=== PATIENT | female | born 1965 ===

== ENCOUNTER 2021-12-30 14:42 | Emergency (ER) | payer OTHER, MEDICAID, SELFPAY ==
[2021-12-30 14:48] VITALS: BP 143/105; PULSE 76; RESP 14; TEMP 36.3; O2SAT 97
--- NOTE | 2021-12-30 14:51 | ED_ITS ---
Documented by User: rTu Perez MD 01/05/22 11:07 HPI - Female Genitourinary General: Chief complaint: Vaginal Bleeding Stated complaint: hasn't had period since ', heavy bleeding Time Seen by Provider: 12/30/21 14:51 History of Present Illness: Ms Luo is a 56-year-old lady presenting to the emergency department due to abnormal vaginal bleeding. She reports last normal menstrual period was in 2004 and has not had bleeding since. 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 She has noticed a protruding mass over the past few months and for the past few days has had vaginal bleeding that is required menstrual pads. Does note generalized malaise and abdominal discomfort. Overall course of symptoms has worsened. Intensity is moderate. No other specific changes in health, exacerbating, or alleviating factors identified. Onset (ago): week(s) Location of symptoms: vaginal Severity: moderate Vaginal discharge: none Vaginal bleeding: moderate Associated symptoms: Reports weakness Review of Systems General: Reports: 10 or more systems reviewed and unremarkable except in HPI and below PFSH ED PFSH: Family History (Updated 01/05/22 @ 07:54 by Ernestina Clark RN) Daughter Diabetes Bipolar 1 disorder Hypertension Stroke Father Diabetes Heart disease Sister No problems noted. Son Psychiatric illness ADD (attention deficit disorder) ADHD (attention deficit hyperactivity disorder) Von Willebrand disease Brother Diabetes Mother Thyroid condition Breast cancer 70's Other Bleeding disorder Denies family history of Colon cancer Ovarian cancer Clotting disorder Hyperlipidemia Anesthesia complication Uterine cancer Social History Smoking and tobacco status: former smoker Physical Exam Const: COMMON NORMALS: alert GENERAL APPEARANCE: cooperative and well developed HENMT: COMMON NORMALS: normocephalic and atraumatic HEAD & SCALP: normocephalic and atraumatic Eye: COMMON NORMALS: conjunctivae normal CONJUNCTIVA: Yes conjunctivae normal SCLERA: sclerae normal Neck/C-Spine: COMMON NORMALS: supple GENERAL: Yes trachea midline Resp: COMMON NORMALS: normal respiratory effort EFFORT & INSPECTION: Yes able to speak in complete sentences Cardio: COMMON NORMALS: regular rate and regular rhythm RATE: regular rate RHYTHM: regular rhythm GI: COMMON NORMALS: Soft to palpation PALPATION: Yes Soft to palpation, Yes Tenderness to palpation present (GI), No Guarding due to palpation present (GI) and No Rigid due to palpation : OTHER: Pelvic exam performed with doughnut fryer present. Dark red blood with clots noted on the external genitalia from the vaginal introitus, no external lesions appreciated. No obvious abnormality identified as source of bleeding in the vaginal canal. Cervix only partially visualized and appears asymmetric. There is bogginess on bimanual exam with more tenderness at midline and left adnexal region compared to contralateral side though with general tenderness. Extremity: GENERAL: Yes normal exam except as noted and No edema Neuro: COMMON NORMALS: moves all extremities SENSORIUM/ORIENTATION: Yes alert and No Orientation impaired Psych: COMMON NORMALS: mental status grossly normal and Normal thought process present THOUGHT PROCESS: Normal thought process present Course Vital Signs: Vital signs: Vital Signs Temperature 97.4 F L 12/30/21 14:48 Pulse Rate 62 12/30/21 19:37 Respiratory Rate 16 12/30/21 19:37 Blood Pressure 143/105 12/30/21 14:48 Pulse Oximetry 100 12/30/21 19:37 Oxygen Delivery Me thod 12/30/21 17:40 MDM - Female Medical Decision Making 56-year-old lady with abnormal gynecologic history lost to follow-up presenting to the emergency department due to postmenopausal bleeding. Patient is vitally satisfactory and nontoxic in appearance though does have abdominal tenderness to palpation. Exam as above. Hematologic panel with normal hemoglobin, no leukocytosis, metabolic panel w ithout significant abnormality. 3+ blood on urinalysis may be secondary to contamination. Patient care handed off to Dr. Ayala pending completion of ultrasound with likely plan for outpatient follow-up. Most likely etiology of patient's symptoms is dysfunctional uterine bleeding with high clinical suspicion for malignancy. Patient presents here with vaginal bleeding likely from her ovarian mass that is concerning for neoplasm. Her hemoglobin here is normal I did speak to Dr. Reilly she is to follow-up with him in 3 to 5 days and return if worsening she understands and agrees to plan. Medical Records I reviewed the patient's medical records. Lab Data I reviewed the patient's lab results. : 12/30/21 15:15 12/30/21 15:15 Radiology Impressions Pelvic/Transvag US 12/30/21 16:10 IMPRESSION: 1. There is a right adnexal cystic mass with a large solid mural nodule demonstrated. This complex cystic mass measures 7.0 x 7.1 x 13.9 cm. Color Doppler demonstrates the presence of blood flow within the mural nodule. This is concerning for an ovarian neoplastic lesion. Consider surgical evaluation. 2. The endometrium is abnormally thickened measuring 13 mm in AP dimension. Consider endometrial hyperplasia. Endometrial neoplastic disease is not excluded. Laboratory Results WBC 4.3 10^3/uL (4.0-10.0) 12/30/21 15:15 RBC 5.32 10^6/uL (4.1-5.3) H 12/30/21 15:15 Hgb 15.0 g/dL (11.5-15.3) 12/30/21 15:15 Hct 47.2 % (37.0-47.0) H 12/30/21 15:15 MCV 88.7 fl (81-99) 12/30/21 15:15 MCH 28.2 pg (28.0-34.0) 12/30/21 15:15 MCHC 31.8 g/dL (30.0-36.0) 12/30/21 15:15 RDW 13.4 % (12.1-15.1) 12/30/21 15:15 Plt Count 247 10^3/cmm (130-400) 12/30/21 15:15 MPV 10.4 fL (7.4-10.4) 12/30/21 15:15 Neut % (Auto) 57.0 % 12/30/21 15:15 Lymph % (Auto) 31.1 % 12/30/21 15:15 [place] % (Auto) 6.1 % 12/30/21 15:15 Eos % (Auto) 4.4 % 12/30/21 15:15 Baso % (Auto) 1.2 % 12/30/21 15:15 Neut # (Auto) 2.44 10^3/uL (1.8-7.7) 12/30/21 15:15 Lymph # (Auto) 1.3 10^3/uL (0.8-4.8) 12/30/21 15:15 [place] # (Auto) 0.3 10^3/uL (0.2-0.9) 12/30/21 15:15 Eos # (Auto) 0.2 10^3/uL (0.0-0.8) 12/30/21 15:15 Baso # (Auto) 0.1 10^3/uL (0.0-0.1) 12/30/21 15:15 Nucleated RBC % (auto) 0 % 12/30/21 15:15 Nucleated RBCs # 0.0 /100WBC 12/30/21 15:15 Sodium 141 mmol/L (136-145) 12/30/21 15:15 Potassium 4.3 mmol/L (3.5-5.1) 12/30/21 15:15 Chloride 104 mmol/L (98-107) 12/30/21 15:15 Carbon Dioxide 27 mmol/L (22-29) 12/30/21 15:15 Anion Gap 14.3 (5-19) 12/30/21 15:15 BUN 17 mg/dL (6-20) 12/30/21 15:15 Creatinine 0.5 mg/dL (0.5-0.9) 12/30/21 15:15 GFR Calculation 128.1 mL/min (90-130) 12/30/21 15:15 Glucose 91 mg/dL (65-115) 12/30/21 15:15 Calculated Osmolality 293 mOsm/kg (285-295) 12/30/21 15:15 Calcium 9.0 mg/dL (8.5-10.5) 12/30/21 15:15 Total Bilirubin 0.4 mg/dL (0.15-1.2) 12/30/21 15:15 AST 12 U/L (0-32) 12/30/21 15:15 ALT 15 U/L (0-33) 12/30/21 15:15 Alkaline Phosphatase 119 U/L (35-105) H 12/30/21 15:15 Total Protein 6.5 g/dL (6.6-8.7) L 12/30/21 15:15 Albumin 4.2 g/dL (3.5-5.2) 12/30/21 15:15 Globulin 2.3 g/dL (1.3-4.6) 12/30/21 15:15 Lipase 15 U/L (13-60) 12/30/21 15:15 CA 125 Antigen 19.9 U/mL (0-35) 12/30/21 15:15 Urine Color Yellow (Yellow) 12/30/21 18:20 Urine Appearance Clear (CLEAR) 12/30/21 18:20 Urine pH 8 (5-7) H 12/30/21 18:20 Ur Specific [place] 1.010 (1.005-1.030) 12/30/21 18:20 Urine Protein Neg (Negative) 12/30/21 18:20 Urine Glucose (UA) Norm (Normal) 12/30/21 18:20 Urine Ketones Negative (Negative) 12/30/21 18:20 Urine Blood 3+ (Negative) H 12/30/21 18:20 Urine Nitrate Negative (Negative) 12/30/21 18:20 Urine Bilirubin Neg (Negative) 12/30/21 18:20 Prot Sulfosalicylic Acd Negative (Negative) 12/30/21 18:20 Urine Urobilinogen Norm mg/dL (Negative) 12/30/21 18:20 Ur Leukocyte Esterase Negative (Negative) 12/30/21 18:20 Urine RBC Too numerous to cnt /hpf (0-2) H 12/30/21 18:20 Urine WBC 10-15 /hpf (0-5) H 12/30/21 18:20 Ur Squamous Epith Cells 10-15 /hpf (0-5) H 12/30/21 18:20 Amorphous Sediment Not Reportable 12/30/21 18:20 Urine Bacteria 2+ /hpf (NONE) H 12/30/21 18:20 Urine Mucus 1+ /hpf 12/30/21 18:20 Discharge Plan Discharge Patient Disposition: Home Clinical Impression: Dysfunctional uterine bleeding, Mass of right ovary Condition: Stable Prescriptions: New hydrocodone-acetaminophen 5-325 mg tablet 1 tab PO Q6H PRN (Reason: pain) Qty: 14 0RF ondansetron 4 mg tablet,disintegrating 4 mg PO Q6H PRN (Reason: nausea and vomiting) Qty: 14 0RF No Action acetaminophen [Tylenol Extra Strength] 500 mg tablet 500 mg PO Q6H PRN nitroglycerin 0.4 mg tablet, sublingual 0.4 mg sublingual Q5M PRN Rx Instructions: do not exceed 3 doses per episode Discharge Orders: Discharge ED (Routine); Ordered 12/30/21 Ordered By: Melissa Ayala Referrals: Xavi Reilly MD [Physician] - 1-3 days Discharge Diet: Advance as tolerated Discharge Activity: Resume usual activity Patient Instructions: Opioid Safety Stand Alone Forms: Work/School Release Coding Level of Care Code ED [employer] for [employer] Fwd Exam Comprehensive Documented by User: Melissa Ayala MD 12/30/21 19:35 HPI - Female Genitourinary General: Chief complaint: Vaginal Bleeding Stated complaint: hasn't had period since ', heavy bleeding Time Seen by Provider: 12/30/21 14:51 PFSH ED PFSH: Family History (Updated 01/05/22 @ 07:54 by Ernestina Clark RN) Daughter Diabetes Bipolar 1 disorder Hypertension Stroke Father Diabetes Heart disease Sister No problems noted. Son Psychiatric illness ADD (attention deficit disorder) ADHD (attention deficit hyperactivity disorder) Von Willebrand disease Brother Diabetes Mother Thyroid condition Breast cancer 70's Other Bleeding disorder Denies family history of Colon cancer Ovarian cancer Clotting disorder Hyperlipidemia Anesthesia complication Uterine cancer Social History Smoking and tobacco status: former smoker Course Vital Signs: Vital signs: Vital Signs Temperature 97.4 F L 12/30/21 14:48 Pulse Rate 62 12/30/21 19:37 Respiratory Rate 16 12/30/21 19:37 Blood Pressure 143/105 12/30/21 14:48 Pulse Oximetry 100 12/30/21 19:37 Oxygen Delivery Me thod 12/30/21 17:40 MDM - Female Medical Decision Making Patient presents here with vaginal bleeding likely from her ovarian mass that is concerning for neoplasm. Her hemoglobin here is normal I did speak to Dr. Reilly she is to follow-up with him in 3 to 5 days and return if worsening she understands and agrees to plan. Lab Data : 12/30/21 15:15 12/30/21 15:15 Radiology Impressions Pelvic/Transvag US 12/30/21 16:10 IMPRESSION: 1. There is a right adnexal cystic mass with a large solid mural nodule demonstrated. This complex cystic mass measures 7.0 x 7.1 x 13.9 cm. Color Doppler demonstrates the presence of blood flow within the mural nodule. This is concerning for an ovarian neoplastic lesion. Consider surgical evaluation. 2. The endometrium is abnormally thickened measuring 13 mm in AP dimension. Consider endometrial hyperplasia. Endometrial neoplastic disease is not excluded. Laboratory Results WBC 4.3 10^3/uL (4.0-10.0) 12/30/21 15:15 RBC 5.32 10^6/uL (4.1-5.3) H 12/30/21 15:15 Hgb 15.0 g/dL (11.5-15.3) 12/30/21 15:15 Hct 47.2 % (37.0-47.0) H 12/30/21 15:15 MCV 88.7 fl (81-99) 12/30/21 15:15 MCH 28.2 pg (28.0-34.0) 12/30/21 15:15 MCHC 31.8 g/dL (30.0-36.0) 12/30/21 15:15 RDW 13.4 % (12.1-15.1) 12/30/21 15:15 Plt Count 247 10^3/cmm (130-400) 12/30/21 15:15 MPV 10.4 fL (7.4-10.4) 12/30/21 15:15 Neut % (Auto) 57.0 % 12/30/21 15:15 Lymph % (Auto) 31.1 % 12/30/21 15:15 [place] % (Auto) 6.1 % 12/30/21 15:15 Eos % (Auto) 4.4 % 12/30/21 15:15 Baso % (Auto) 1.2 % 12/30/21 15:15 Neut # (Auto) 2.44 10^3/uL (1.8-7.7) 12/30/21 15:15 Lymph # (Auto) 1.3 10^3/uL (0.8-4.8) 12/30/21 15:15 [place] # (Auto) 0.3 10^3/uL (0.2-0.9) 12/30/21 15:15 Eos # (Auto) 0.2 10^3/uL (0.0-0.8) 12/30/21 15:15 Baso # (Auto) 0.1 10^3/uL (0.0-0.1) 12/30/21 15:15 Nucleated RBC % (auto) 0 % 12/30/21 15:15 Nucleated RBCs # 0.0 /100WBC 12/30/21 15:15 Sodium 141 mmol/L (136-145) 12/30/21 15:15 Potassium 4.3 mmol/L (3.5-5.1) 12/30/21 15:15 Chloride 104 mmol/L (98-107) 12/30/21 15:15 Carbon Dioxide 27 mmol/L (22-29) 12/30/21 15:15 Anion Gap 14.3 (5-19) 12/30/21 15:15 BUN 17 mg/dL (6-20) 12/30/21 15:15 Creatinine 0.5 mg/dL (0.5-0.9) 12/30/21 15:15 GFR Calculation 128.1 mL/min (90-130) 12/30/21 15:15 Glucose 91 mg/dL (65-115) 12/30/21 15:15 Calculated Osmolality 293 mOsm/kg (285-295) 12/30/21 15:15 Calcium 9.0 mg/dL (8.5-10.5) 12/30/21 15:15 Total Bilirubin 0.4 mg/dL (0.15-1.2) 12/30/21 15:15 AST 12 U/L (0-32) 12/30/21 15:15 ALT 15 U/L (0-33) 12/30/21 15:15 Alkaline Phosphatase 119 U/L (35-105) H 12/30/21 15:15 Total Protein 6.5 g/dL (6.6-8.7) L 12/30/21 15:15 Albumin 4.2 g/dL (3.5-5.2) 12/30/21 15:15 Globulin 2.3 g/dL (1.3-4.6) 12/30/21 15:15 Lipase 15 U/L (13-60) 12/30/21 15:15 CA 125 Antigen 19.9 U/mL (0-35) 12/30/21 15:15 Urine Color Yellow (Yellow) 12/30/21 18:20 Urine Appearance Clear (CLEAR) 12/30/21 18:20 Urine pH 8 (5-7) H 12/30/21 18:20 Ur Specific [place] 1.010 (1.005-1.030) 12/30/21 18:20 Urine Protein Neg (Negative) 12/30/21 18:20 Urine Glucose (UA) Norm (Normal) 12/30/21 18:20 Urine Ketones Negative (Negative) 12/30/21 18:20 Urine Blood 3+ (Negative) H 12/30/21 18:20 Urine Nitrate Negative (Negative) 12/30/21 18:20 Urine Bilirubin Neg (Negative) 12/30/21 18:20 Prot Sulfosalicylic Acd Negative (Negative) 12/30/21 18:20 Urine Urobilinogen Norm mg/dL (Negative) 12/30/21 18:20 Ur Leukocyte Esterase Negative (Negative) 12/30/21 18:20 Urine RBC Too numerous to cnt /hpf (0-2) H 12/30/21 18:20 Urine WBC 10-15 /hpf (0-5) H 12/30/21 18:20 Ur Squamous Epith Cells 10-15 /hpf (0-5) H 12/30/21 18:20 Amorphous Sediment Not Reportable 12/30/21 18:20 Urine Bacteria 2+ /hpf (NONE) H 12/30/21 18:20 Urine Mucus 1+ /hpf 12/30/21 18:20 Discharge Plan Discharge Patient Disposition: Home Clinical Impression: Dysfunctional uterine bleeding, Mass of right ovary Condition: Stable Prescriptions: New hydrocodone-acetaminophen 5-325 mg tablet 1 tab PO Q6H PRN (Reason: pain) Qty: 14 0RF ondansetron 4 mg tablet,disintegrating 4 mg PO Q6H PRN (Reason: nausea and vomiting) Qty: 14 0RF No Action acetaminophen [Tylenol Extra Strength] 500 mg tablet 500 mg PO Q6H PRN nitroglycerin 0.4 mg tablet, sublingual 0.4 mg sublingual Q5M PRN Rx Instructions: do not exceed 3 doses per episode Discharge Orders: Discharge ED (Routine); Ordered 12/30/21 Ordered By: Melissa Ayala Referrals: Xavi Reilly MD [Physician] - 1-3 days Discharge Diet: Advance as tolerated Discharge Activity: Resume usual activity Patient Instructions: Opioid Safety Stand Alone Forms: Work/School Release Coding 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
[2021-12-30 15:24] LABS: Basophils # 0.1 10^3/uL (0.0-0.1); Basophils % 1.2 %; Eosinophils # 0.2 10^3/uL (0.0-0.8); Eosinophils % 4.4 %; Hematocrit 47.2 % (37.0-47.0); Lymphocytes # 1.3 10^3/uL (0.8-4.8); Lymphocytes % 31.1 %; Mean Corpuscular HGB Conc 31.8 g/dL (30.0-36.0); Mean Corpuscular Hemoglobin 28.2 pg (28.0-34.0); Mean Corpuscular Volume 88.7 fl (81-99); Mean Platelet Volume 10.4 fL (7.4-10.4); Monocytes # 0.3 10^3/uL (0.2-0.9); Monocytes % 6.1 %; Neutrophils # 2.44 10^3/uL (1.8-7.7); Nucleated Red Blood Cells % 0 %; Platelet Count 247 10^3/cmm (130-400); Red Blood Count 5.32 10^6/uL (4.1-5.3); Red Cell Distribution Width 13.4 % (12.1-15.1); White Blood Count 4.3 10^3/uL (4.0-10.0)
[2021-12-30 15:30] VITALS: RESP 14; O2SAT 95
[2021-12-30] MEDS: morphine 4 mg/mL SDV 1 mL IVP (15:30)
[2021-12-30 15:49] LABS: Alanine Aminotransferase 15 U/L (0-33); Albumin Level 4.2 g/dL (3.5-5.2); Alkaline Phosphatase 119 U/L (35-105); Anion Gap 14.3 (5-19); Aspartate Amino Transferase 12 U/L (0-32); Blood Urea Nitrogen 17 mg/dL (6-20); Carbon Dioxide 27 mmol/L (22-29); Chloride 104 mmol/L (98-107); Globulin 2.3 g/dL (1.3-4.6); Glomerular Filtration Rate 128.1 mL/min (90-130); Glucose 91 mg/dL (65-115); Lipase 15 U/L (13-60); Osmolality Calculated 293 mOsm/kg (285-295); Potassium 4.3 mmol/L (3.5-5.1); Sodium 141 mmol/L (136-145); Total Bilirubin 0.4 mg/dL (0.15-1.2); Total Protein 6.5 g/dL (6.6-8.7)
--- NOTE | 2021-12-30 16:10 | USR_ITS ---
PROCEDURE INFORMATION: Exam: US Pelvis Complete, Transabdominal and US Pelvis, Transvaginal Exam date and time: 12/30/2021 5:12 PM Age: 56 years old Clinical indication: Other: Postmenopause bleeding; Pelvic pain and vaginal pain; Additional info: Vaginal bleeding, post menopause, pelvic pain, reports HX dysplasia lost to followup TECHNIQUE: Imaging protocol: Real-time complete transabdominal and transvaginal pelvic ultrasound with image documentation. Transvaginal imaging was used for better evaluation of the endometrium, adnexa, and/or cervix. COMPARISON: No relevant prior studies available. FINDINGS: Uterus: Uterus measures 8.8 cm longitudinal x 4.1 cm AP x 5.3 cm transverse. Myometrial echotexture is unremarkable. No focal uterine mass demonstrated. The endometrium is abnormally thickened measuring 13 mm in AP dimension. Right ovary/adnexa: There is a right adnexal cystic mass with a large solid mural nodule demonstrated. This complex cystic mass measures 7.0 x 7.1 x 13.9 cm. Color Doppler demonstrates the presence of blood flow within the mural nodule. The right ovary is not definitively demonstrated separate from this mass. Left ovary/adnexa: Left ovary is not identified. Left adnexal area is unremarkable. Intraperitoneal space: No free intraperitoneal fluid noted in the cul-de-sac. Urinary bladder: Unremarkable. US/US pelvic with transvaginal IMPRESSION: 1. There is a right adnexal cystic mass with a large solid mural nodule demonstrated. This complex cystic mass measures 7.0 x 7.1 x 13.9 cm. Color Doppler demonstrates the presence of blood flow within the mural nodule. This is concerning for an ovarian neoplastic lesion. Consider surgical evaluation. 2. The endometrium is abnormally thickened measuring 13 mm in AP dimension. Consider endometrial hyperplasia. Endometrial neoplastic disease is not excluded.
[2021-12-30 17:40] VITALS: RESP 16; O2SAT 99
[2021-12-30 18:36] LABS: Add Urine Microscopic? YES; Bilirubin Urine Neg (Negative); Blood Urine 3+ (Negative); Glucose Urine UA Norm (Normal); Ketones Urine Negative (Negative); Leukocyte Esterase Urine Negative (Negative); Nitrate Urine Negative (Negative); Protein Urine Neg (Negative); Sulfosalicylic Acid Urine Negative (Negative); Urine Appearance Clear (CLEAR); Urine Color Yellow (Yellow); Urobilinogen Urine Norm (Negative); pH Urine 8 (5-7)
[2021-12-30 18:37] LABS: RBC Urine TOO NUMEROUS TO CNT /hpf (0-2)
[2021-12-30 18:38] LABS: Bacteria Urine 2+ /hpf
[2021-12-30 18:39] LABS: Mucus Urine 1+ /hpf
[2021-12-30 18:40] LABS: Add Urine Culture? Yes
[2021-12-30 19:37] VITALS: PULSE 62; RESP 16; O2SAT 100
[2021-12-30 21:03] LABS: CA 125 19.9 U/mL (0-35)
--- NOTE | 2021-12-31 14:59 | DCPLANNER ---
Addendum entered by Silke Galeas 01/20/22 14:04: Patient had a follow up appointment scheduled for 01.05.[address] Reilly at [facility] - patient did attend appointment. Original Note: economic development manager had message to schedule a follow up appointment for patient with [facility]. economic development manager sent patients information to the front office staff at [facility]. Patients information will be printed and reviewed. Clinic will call patient with appointment information.
== END 2021-12-30 19:38 | disposition home or self-care (01) ==
PROVIDERS: Emergency Medicine; Emergency Provider Emergency Medicine
DX: N93.8 Other specified abnormal uterine and vaginal bleeding (principal); N83.9 Noninflammatory disorder of ovary, fallopian tube and broad ligament, unspecified; Z87.891 Personal history of nicotine dependence
CPT/HCPCS: 76830; 76856; 80053; 81001; 83690; 85025; 86304; 87086; 87210; 87491; 87591; 96374; 99285; J2270

== ENCOUNTER → 2022-01-05 09:00 | Outpatient (BNVA) | payer OTHER, SELFPAY | PROVIDERS: Visit Provider Obstetrics & Gynecology | DX: N83.8 Other noninflammatory disorders of ovary, fallopian tube and broad ligament (principal) | CPT/HCPCS: 86304 ==

== ENCOUNTER 2022-04-27 14:47 | Emergency (ER) | payer BC, MEDICAID, SELFPAY ==
[2022-04-27 15:07] VITALS: BP 125/85; PULSE 86; RESP 18; TEMP 36.7; O2SAT 96; BMI 31.9
--- NOTE | 2022-04-27 15:14 | XRR_ITS ---
PROCEDURE INFORMATION: Exam: XR Abdomen Exam date and time: 04/27/2022 4:28 PM Age: 56 years old Clinical indication: Constipation; Abdominal pain; Generalized; Additional info: Constipation x3 weeks with abd pain TECHNIQUE: Imaging protocol: Radiologic exam of the abdomen. Views: Frontal supine view of the abdomen. 1 View. COMPARISON: No relevant prior studies available. FINDINGS: Gastrointestinal tract: Nonspecific nonobstructive bowel gas pattern appearance. Gas and stool within the colon, with moderate stool volume in the colon. No indication of free air. Suggestion of a few pelvic phleboliths. Psoas margins appear distinct. Bones/joints: Mild degenerative change lower lumbar spine. XR/XR KUB [id number] IMPRESSION: Nonspecific nonobstructive bowel gas pattern with moderate stool volume in the colon.
[2022-04-27 15:55] LABS: Basophils % 0.5 %; Eosinophils # 0.2 10^3/uL (0.0-0.8); Eosinophils % 3.5 %; Hematocrit 42.5 % (37.0-47.0); Hemoglobin 13.7 g/dL (11.5-15.3); Lymphocytes # 1.5 10^3/uL (0.8-4.8); Lymphocytes % 35.8 %; Mean Corpuscular HGB Conc 32.2 g/dL (30.0-36.0); Mean Corpuscular Hemoglobin 27.8 pg (28.0-34.0); Mean Corpuscular Volume 86.4 fl (81-99); Mean Platelet Volume 10.3 fL (7.4-10.4); Monocytes # 0.1 10^3/uL (0.2-0.9); Monocytes % 1.9 %; Neutrophils # 2.48 10^3/uL (1.8-7.7); Neutrophils % 58.1 %; Nucleated Red Blood Cells % 0 %; Platelet Count 210 10^3/cmm (130-400); Red Blood Count 4.92 10^6/uL (4.1-5.3); Red Cell Distribution Width 13.6 % (12.1-15.1); White Blood Count 4.3 10^3/uL (4.0-10.0)
[2022-04-27 16:23] LABS: Alanine Aminotransferase 80 U/L (0-33); Albumin Level 4.3 g/dL (3.5-5.2); Alkaline Phosphatase 141 U/L (35-105); Anion Gap 14.7 (5-19); Aspartate Amino Transferase 38 U/L (0-32); Blood Urea Nitrogen 19 mg/dL (6-20); Calcium 9.2 mg/dL (8.5-10.5); Carbon Dioxide 27 mmol/L (22-29); Chloride 99 mmol/L (98-107); Creatinine Clr Calc Pharmacy 148.4601; Globulin 2.7 g/dL (1.3-4.6); Glomerular Filtration Rate 128.1 mL/min (90-130); Glucose 98 mg/dL (65-115); Osmolality Calculated 284 mOsm/kg (285-295); Potassium 4.7 mmol/L (3.5-5.1); Sodium 136 mmol/L (136-145); Total Bilirubin 0.3 mg/dL (0.15-1.2)
[2022-04-27 17:49] VITALS: BP 139/82; PULSE 88; TEMP 36.7; O2SAT 97
[2022-04-27 18:00] LABS: Add Urine Microscopic? YES; Bilirubin Urine Neg (Negative); Blood Urine Neg (Negative); Glucose Urine UA Norm (Normal); Ketones Urine 1+ (Negative); Leukocyte Esterase Urine Negative (Negative); Nitrate Urine Negative (Negative); Protein Urine Trace (Negative); Specific Gravity, Urine 1.025 (1.005-1.030); Urine Appearance Hazy (CLEAR); Urine Color Yellow (Yellow); Urobilinogen Urine Neg (Negative); pH Urine 5 (5-7)
[2022-04-27 18:22] LABS: Add Urine Culture? No; RBC Urine RARE /hpf (0-2)
--- NOTE | 2022-04-27 19:14 | W.ED.ABDPA2 ---
HPI - Abdominal Pain General: Chief Complaint: Abdominal Pain Stated Complaint: abd pain Time Seen by Provider: 04/27/22 17:49 History of Present Illness: 56-year-old female in with concerns of constipation. She reports its been several weeks since she has had a bowel movement. She has a cancer patient on chemotherapy but does not take a lot of opioid pain medication. She frequently has chronic constipation but usually will go 1-2 times per week. She is on Linzess and has been taking it as directed. The patient denies any new or different medications. She has mild diffuse crampy abdominal pain. PFSH ED PFSH: Family History Daughter Diabetes Bipolar 1 disorder Hypertension Stroke Father Diabetes Heart disease Sister No problems noted. Son Psychiatric illness ADD (attention deficit disorder) ADHD (attention deficit hyperactivity disorder) Von Willebrand disease Brother Diabetes Mother Thyroid condition Breast cancer 70's Other Bleeding disorder Denies family history of Colon cancer Ovarian cancer Clotting disorder Hyperlipidemia Anesthesia complication Uterine cancer Social History Smoking and tobacco status: former smoker Physical Exam Const: COMMON NORMALS: no acute distress, patient oriented x3, alert and well nourished HENMT: COMMON NORMALS: normocephalic HEAD & SCALP: normocephalic Eye: COMMON NORMALS: Equal, round and reactive pupils present, EOMs intact bilaterally and conjunctivae normal CONJUNCTIVA: Yes conjunctivae normal PUPIL: Yes Equal, round and reactive pupils present Neck/C-Spine: COMMON NORMALS: full ROM, no lymphadenopathy, supple, no meningeal signs, no JVD and Thyroid normal THYROID: Thyroid normal Chest: COMMONS NORMALS: normal inspection of the chest and normal palpation of entire chest wall Resp: COMMON NORMALS: normal respiratory effort, No retractions, No use of accessory muscles, clear to auscultation bilaterally and percussion normal AUSCULTATION: clear to auscultation bilaterally PERCUSSION: percussion normal Cardio: COMMON NORMALS: no JVD GI: COMMON NORMALS: Normal to inspection, nondistended, normoactive bowel sounds present, Soft to palpation, non-tender, No hepatosplenomegaly present, no masses and no bruits PALPATION: Yes Soft to palpation and Yes No hepatosplenomegaly present : COMMON NORMALS: Yes no CVA tenderness BLADDER/KIDNEY EXAM: Yes no CVA tenderness Back/Pelvis: COMMON NORMALS: no CVA tenderness Extremity: COMMON NORMALS: normal to inspection, full ROM, capillary refill normal, no joint enlargement, no clubbing, cyanosis or edema, no calf tenderness and no pedal edema Neuro: COMMON NORMALS: patient oriented x3 SENSORIUM/ORIENTATION: Yes alert MENINGEAL SIGNS: Yes no meningeal signs Skin: COMMON NORMALS: no rashes or lesions noted, turgor normal and no jaundice GENERAL SKIN EXAM: no rashes or lesions noted and turgor normal Course Vital Signs: Vital signs: Vital Signs Temperature 98.1 F 04/27/22 17:49 Pulse Rate 88 04/27/22 17:49 Respiratory Rate 18 04/27/22 15:07 Blood Pressure 139/82 04/27/22 17:49 Pulse Oximetry 97 04/27/22 17:49 Oxygen Delivery Me thod 04/27/22 17:49 MDM - Abdominal Pain Medical Decision Making 56-year-old female in with concerns of diffuse abdominal pain. The patient has not had a bowel movement in several weeks. Recommend plain film to make sure there is no obstruction or large fecal impaction and routine labs to make sure there is no reversible causes. The patient's work-up here was largely nondiagnostic. I made some recommendations to try to help her have a bowel movement but she does not appear obstructed or needed any emergent hospitalization or surgery at this point. Follow-up recommended return precautions discussed. Lab Data 04/27/22 15:48 04/27/22 15:48 Labs/Radiology: Radiology Impressions KUB X-Ray 04/27/22 15:14 IMPRESSION: Nonspecific nonobstructive bowel gas pattern with moderate stool volume in the colon. Laboratory Results WBC 4.3 10^3/uL (4.0-10.0) 04/27/22 15:48 RBC 4.92 10^6/uL (4.1-5.3) 04/27/22 15:48 Hgb 13.7 g/dL (11.5-15.3) 04/27/22 15:48 Hct 42.5 % (37.0-47.0) 04/27/22 15:48 MCV 86.4 fl (81-99) 04/27/22 15:48 MCH 27.8 pg (28.0-34.0) L 04/27/22 15:48 MCHC 32.2 g/dL (30.0-36.0) 04/27/22 15:48 RDW 13.6 % (12.1-15.1) 04/27/22 15:48 Plt Count 210 10^3/cmm (130-400) 04/27/22 15:48 MPV 10.3 fL (7.4-10.4) 04/27/22 15:48 Neut % (Auto) 58.1 % 04/27/22 15:48 Lymph % (Auto) 35.8 % 04/27/22 15:48 [place] % (Auto) 1.9 % 04/27/22 15:48 Eos % (Auto) 3.5 % 04/27/22 15:48 Baso % (Auto) 0.5 % 04/27/22 15:48 Neut # (Auto) 2.48 10^3/uL (1.8-7.7) 04/27/22 15:48 Lymph # (Auto) 1.5 10^3/uL (0.8-4.8) 04/27/22 15:48 [place] # (Auto) 0.1 10^3/uL (0.2-0.9) L 04/27/22 15:48 Eos # (Auto) 0.2 10^3/uL (0.0-0.8) 04/27/22 15:48 Baso # (Auto) 0.0 10^3/uL (0.0-0.1) 04/27/22 15:48 Nucleated RBC % (auto) 0 % 04/27/22 15:48 Nucleated RBCs # 0.0 /100WBC 04/27/22 15:48 Sodium 136 mmol/L (136-145) 04/27/22 15:48 Potassium 4.7 mmol/L (3.5-5.1) 04/27/22 15:48 Chloride 99 mmol/L (98-107) 04/27/22 15:48 Carbon Dioxide 27 mmol/L (22-29) 04/27/22 15:48 Anion Gap 14.7 (5-19) 04/27/22 15:48 BUN 19 mg/dL (6-20) 04/27/22 15:48 Creatinine 0.5 mg/dL (0.5-0.9) 04/27/22 15:48 GFR Calculation 128.1 mL/min (90-130) 04/27/22 15:48 Glucose 98 mg/dL (65-115) 04/27/22 15:48 Calculated Osmolality 284 mOsm/kg (285-295) L 04/27/22 15:48 Calcium 9.2 mg/dL (8.5-10.5) 04/27/22 15:48 Total Bilirubin 0.3 mg/dL (0.15-1.2) 04/27/22 15:48 AST 38 U/L (0-32) H 04/27/22 15:48 ALT 80 U/L (0-33) H 04/27/22 15:48 Alkaline Phosphatase 141 U/L (35-105) H 04/27/22 15:48 Total Protein 7.0 g/dL (6.6-8.7) 04/27/22 15:48 Albumin 4.3 g/dL (3.5-5.2) 04/27/22 15:48 Globulin 2.7 g/dL (1.3-4.6) 04/27/22 15:48 Urine Color Yellow (Yellow) 04/27/22 17:45 Urine Appearance Hazy (CLEAR) A 04/27/22 17:45 Urine pH 5 (5-7) 04/27/22 17:45 Ur Specific [place] 1.025 (1.005-1.030) 04/27/22 17:45 Urine Protein Trace (Negative) 04/27/22 17:45 Urine Glucose (UA) Norm (Normal) 04/27/22 17:45 Urine Ketones 1+ (Negative) H 04/27/22 17:45 Urine Blood Neg (Negative) 04/27/22 17:45 Urine Nitrate Negative (Negative) 04/27/22 17:45 Urine Bilirubin Neg (Negative) 04/27/22 17:45 Urine Urobilinogen Neg mg/dL (Negative) 04/27/22 17:45 Ur Leukocyte Esterase Negative (Negative) 04/27/22 17:45 Urine RBC Rare /hpf (0-2) 04/27/22 17:45 Urine WBC None /hpf (0-5) 04/27/22 17:45 Ur Squamous Epith Cells None /hpf (0-5) 04/27/22 17:45 Amorphous Sediment Not Reportable 04/27/22 17:45 Urine Bacteria None /hpf (NONE) 04/27/22 17:45 Discharge Plan Discharge Patient Disposition: Home Clinical Impression: Constipation Condition: Stable Prescriptions: New magnesium citrate Solution 300 ml PO DAILY PRN (Reason: constipation) Qty: 296 0RF No Action acetaminophen [Tylenol Extra Strength] 500 mg tablet 500 mg PO Q6H PRN nitroglycerin 0.4 mg tablet, sublingual 0.4 mg sublingual Q5M PRN Rx Instructions: do not exceed 3 doses per episode hydrocodone-acetaminophen 5-325 mg tablet 1 tab PO Q6H PRN (Reason: pain) Qty: 14 0RF ondansetron 4 mg tablet,disintegrating 4 mg PO Q6H PRN (Reason: nausea and vomiting) Qty: 14 0RF Discharge Orders: Discharge ED (Routine); Ordered 04/27/22 Ordered By: Aidan Perez Referrals: Wei Purvis DO [Primary Care Provider] - Discharge Diet: As Directed Discharge Activity: Resume usual activity Patient Instructions: Opioid Safety, Pain Management Activity Restrictions/Additional Instructions: 1. Increase fluids and fiber. Increase activity. supervisor plastic sheets Magnesium citrate then consider enema if no results. Follow up with PCP in 2-3 days if no results. Coding Level of Care Code ED Rigger Helper for Kateryna Isabel
== END 2022-04-27 19:16 | disposition home or self-care (01) ==
PROVIDERS: Nurse Practitioner Family; Emergency Provider Family Medicine; PCP Family Medicine
DX: K59.00 Constipation, unspecified (principal)
CPT/HCPCS: 36415; 74018; 80053; 81001; 85025; 99284

== ENCOUNTER 2022-10-28 15:20 | Oncology outpatient (recurring) (ONCR) | payer BC, MEDICAID, SELFPAY ==
[2022-10-28 16:10] VITALS: BP 125/76; PULSE 79; RESP 16; TEMP 36.3; O2SAT 97
== END 2022-10-28 23:59 | disposition home or self-care (01) ==
PROVIDERS: PCP Family Medicine; Visit Provider Internal Medicine Medical Oncology
DX: Z45.2 Encounter for adjustment and management of vascular access device (principal); Z53.9 Procedure and treatment not carried out, unspecified reason
CPT/HCPCS: J1642